=== PATIENT | male | born 2000 | race Caucasian/White ===

== ENCOUNTER 2023-12-01 11:16 | Emergency (ER) | payer SELFPAY ==
[~2023-12-01] VITALS: Ht 180.3 cm; Wt 90.9 kg
[2023-12-01] MEDS: DiphenhydrAMINE HCL 50 MG/ML VIAL IM ONE (12:34)
[2023-12-01] MEDS: LORazepam 2 MG/ML VIAL IM ONE (12:35)
[2023-12-01] MEDS: HALOPERIDOL LACTATE 5 MG/ML VIAL IM ONE (12:35)
[2023-12-01] MEDS: ZIPRASIDONE MESYLATE 20 MG/VIAL IM ONE (13:20)
[2023-12-01 13:40] LABS: COVID AG,FIA SOURCE NASAL SWAB
[2023-12-01 13:42] VITALS: TEMP 98.9
[2023-12-01 13:42] LABS: EOSINOPHILS % (AUTO) 0.7 % (1.0-6.0); HEMATOCRIT 45.5 % (41-53); HEMOGLOBIN 15.6 g/dL (13.5-17.5); LYMPHOCYTES # (AUTO) 2.1 K/uL (1.0-4.8); MEAN CORPUSCULAR HEMOGLOBIN 31.5 pg (26.0-34.0); MEAN CORPUSCULAR HGB CONC 34.4 G/dL (31.0-37.0); MEAN CORPUSCULAR VOLUME 92 fL (80-100); MONOCYTES # (AUTO) 0.4 K/uL (0.1-1.0); MONOCYTES % (AUTO) 4.7 % (2.0-9.0); NEUTROPHILS # (AUTO) 5.2 K/uL (1.8-7.7); NEUTROPHILS % (AUTO) 66.6 % (40.0-70.0); PLATELET COUNT (AUTO) 387 K/uL (150-450); RED BLOOD CELL COUNT(AUTO) 4.96 MIL/uL (4.50-5.90); RED CELL DISTRIBUTION WIDTH 12.9 % (11.5-14.5); WHITE BLOOD COUNT (AUTO) 7.8 K/uL (4.5-11.0)
[2023-12-01 13:50] LABS: ANION GAP 16 mmol/L (8-16); CALCIUM, TOTAL 8.8 mg/dL (8.8-10.5); CARBON DIOXIDE 20 mmol/L (22-29); CHLORIDE 103 mmol/L (98-107); CREATININE 1.01 mg/dL (0.60-1.30); GLOMERULAR FILTR. RATE CALC > 60 mL/min (>60); GLUCOSE,RANDOM 90 mg/dL (70-110); POTASSIUM 4.1 mmol/L (3.5-5.1); SODIUM SERUM 139 mmol/L (136-145); UREA NITROGEN, BLOOD 13 mg/dL (7-18)
[2023-12-01 13:57] LABS: ALANINE AMINOTRANSFERASE 275 U/L (12-78); ALBUMIN 4.2 g/dL (3.4-5.0); ALKALINE PHOSPHATASE 79 U/L (46-116); ASPARTATE AMINOTRANSFERASE 289 U/L (15-37); BILIRUBIN,TOTAL 1.1 mg/dL (0.1-1.0); TOTAL PROTEIN, SERUM 8.4 g/dL (6.4-8.2)
[2023-12-01 13:58] LABS: SARS-COV2 (COVID) ANTIGEN,FIA Negative (Negative)
[2023-12-01 14:00] LABS: ALCOHOL, BLOOD (SERUM) 266 mg/dL (0-10)
[2023-12-01] MEDS ORDERED: ZOLPIDEM TARTRATE 10 MG TABLET PO PRN (14:00)
[2023-12-01] MEDS ORDERED: HALOPERIDOL 5 MG TABLET PO PRN (14:00)
[2023-12-01] MEDS: NICOTINE 21 MG/24 HOUR PATCH TD ONE (18:20)
[2023-12-02] MEDS: LORazepam 2 MG TABLET PO PRN (06:43)
[2023-12-02 06:44] VITALS: BP 178/89; PULSE 92; RESP 16
[2023-12-02] MEDS: NICOTINE 21 MG/24 HOUR PATCH TD ONE (11:55)
[2023-12-02] MEDS ORDERED: CHLO25CA6 PO (13:48)
== END 2023-12-02 14:48 | disposition home or self-care (01) ==
LOC: EMS 11:17
DX: F31.9 Bipolar disorder, unspecified (principal); F10.129 Alcohol abuse with intoxication, unspecified; F17.210 Nicotine dependence, cigarettes, uncomplicated; Z20.822 Contact with and (suspected) exposure to COVID-19
CPT/HCPCS: 80053; 85025; 36415; 96372; 99291; 87426; G0480; J1200; J1630; J2060; J3486